=== PATIENT | male | born 1975 | race Caucasian/White ===

== ENCOUNTER 2018-09-19 14:32 | Emergency (ER) | payer SELFPAY ==
[~2018-09-19] VITALS: Ht 185.4 cm; Wt 117.9 kg
[2018-09-19 14:40] VITALS: BP 128/80; Ht 185.4 cm; Wt 117.9 kg
== END 2018-09-19 15:40 | disposition home or self-care (01) ==
LOC: ED 14:32
DX: F10.129 Alcohol abuse with intoxication, unspecified (principal); I10 Essential (primary) hypertension; E11.9 Type 2 diabetes mellitus without complications